=== PATIENT | male | born 1990 ===

== ENCOUNTER 2018-01-07 17:41 | Observation (INO) | payer BC ==
[~2018-01-07 17:41] MED LIST: Bupivacaine HCl 0.25% PF (30 ml) Inj IJ ONE; Lidocaine 2% MPF (5 ml) Inj INJ ONE; Sodium Chloride 0.9% 1,000 ML IV ONE
[2018-01-07 18:08] VITALS: O2SAT 100
--- NOTE | 2018-01-07 18:41 | ED PDOC ---
HPI: Male Pain Time Seen by Provider: 01/07/18 18:11 Chief Complaint (Nursing): Male Genitourinary Chief Complaint (Provider): Male Genitourinary Onset/Duration Of Symptoms: Hrs (x6) Additional Complaint(s): Austin Monson is a 27 y/o male with no significant past medical history who presents to the ED complaining of testicular pain associated with swelling, onset earlier today at 12:00. Patient reports that he had a similar episode several months when he was diagnosed with a cyst after outpatient ultrasound; he states that this feels worse. He states pain radiates to back as well as lower abdomen. He denies any urinary symptoms, diarrhea, constipation, fever, chills, or trauma. PMD: [facility]) Past Medical History Reviewed: Historical Data, Nursing Documentation, Vital Signs Vital Signs: Last Vital Signs Temp 98 F 01/07/18 18:07 Pulse 77 01/07/18 18:07 Resp 20 01/07/18 18:07 BP 128/78 01/07/18 18:07 Pulse Ox 100 01/07/18 18:07 - Medical History PMH: No Chronic Diseases - Surgical History Surgical History: No Surg Hx Other surgeries: Bunion - Family History Family History: States: No Known Family Hx - Social History Current smoker - smoking cessation education provided: No - Home Medications Home Medications: Ambulatory Orders Medication Instructions Recorded No Known Home Med 01/08/18 - Allergies Allergies/Adverse Reactions: Allergies Allergy/AdvReac Type Severity Reaction Status Date / Time No Known Allergies Allergy Verified 01/07/18 18:09 Review of Systems ROS Statement: Except As Marked, All Systems Reviewed And Found Negative (As per HPI otherwise negative) Constitutional: Negative for: Fever, Chills, Other (trauma) Gastrointestinal: Positive for: Abdominal Pain (lower). Negative for: Diarrhea , Constipation Genitourinary Male: Positive for: Scrotal Pain (testicular pain and swelling). Negative for: Dysuria, Frequency, Incontinence Musculoskeletal: Positive for: Back Pain Physical Exam - Reviewed Nursing Documentation Reviewed: Yes Vital Signs Reviewed: Yes - Physical Exam Appears: Positive for: Uncomfortable, In Acute Distress Head Exam: Positive for: ATRAUMATIC, NORMOCEPHALIC Skin: Positive for: Warm, Dry Eye Exam: Positive for: EOMI, PERRL Neck: Positive for: Painless ROM, Trachea Midline Respiratory: Negative for: Accessory Muscle Use, Respiratory Distress Gastrointestinal/Abdominal: Positive for: Soft. Negative for: Distended, Guarding, Rebound, Hernia Male Genital Exam: Positive for: no hernia, testicular tenderness (R) (swelling with tenderness to palpation). Negative for: erythema, lesions, other ( testicular lymphadenopathy) Back: Positive for: Normal Inspection Extremity: Positive for: Normal ROM. Negative for: Deformity Lymphatic: Negative for: Inguinal Node Tenderness Neurologic/Psych: Positive for: Alert. Negative for: Motor/Sensory Deficits - Laboratory Results Result Diagrams: 01/07/18 19:42 01/07/18 19:42 - ECG O2 Sat by Pulse Oximetry: 100 (RA) Pulse Ox Interpretation: Normal Medical Decision Making Medical Decision Making: Time: 18:17 Initial Impression: Testicular pain Differential diagnosis including but not limited to testicular torsion, epididymitis, hyrdocele varicocele Initial Plan: --ED urine dipstick --Chlamydia/GC RNA, TMA --Morphine 4 mg IVP --US - Tetes duplex complete Time: 19:15 --Discussed with Dr. Olivas (Urology) patient has testicular torsion, needs OR stat --Discussed with patient findings and plan of care. Time: 19:23 Addendum created by Sergio Barroso MD on 01/07/2018 7:43 PM Eastern Time ([place] & [place]) Addendum to correct typographical error: Right testicle: No color Doppler flow seen in the right testicle, compatible with torsion. No mass. Addendum created by Sergio Barroso MD on 01/07/2018 7:32 PM Eastern Time ([place] & [place]) THIS REPORT CONTAINS FINDINGS THAT MAY BE CRITICAL TO PATIENT CARE. The findings were verbally communicated via telephone conference with Chanelle Smith at 7: 32 PM EDT on 01/07/2018. The findings were acknowledged and understood. Initial Report created on 01/07/2018 7:29 PM Eastern Time ([place] & [place]) EXAM: US Scrotum EXAM DATE/TIME: 01/07/2018 7:16 PM CLINICAL HISTORY: 27 years old, male; Pain; Scrotum pain; Additional info: Right testicular swelling R/O torsion TECHNIQUE: Real-time ultrasound of the scrotum with color Doppler and image documentation. COMPARISON: No relevant prior studies available. FINDINGS: Right testicle: No color Doppler flow seen in the right ovary, compatible with torsion. No mass. Left testicle: Unremarkable. No mass. No torsion. Epididymides: Unremarkable. Scrotum: Small right hydrocele. IMPRESSION: Right testicular torsion. Dictated and Authenticated by: Sergio Barroso MD 01/07/2018 7:29 PM Eastern Time ([place] & [place]) Scribe Attestation: Documented by Sang Tyler, acting as a scribe for Chanelle Smith MD. Provider Scribe Attestation: All medical record entries made by the Scribe were at my direction and personally dictated by me. I have reviewed the chart and agree that the record accurately reflects my personal performance of the history, physical exam, medical decision making, and the department course for this patient. I have also personally directed, reviewed, and agree with the discharge instructions and disposition. Disposition - Clinical Impression Clinical Impression: Testicular torsion Counseled Patient/Family Regarding: Studies Performed, Diagnosis - Disposition Disposition Time: 19:50 Condition: FAIR - Pt Status Changed To: Hospital Disposition Of: Inpatient - Admit Certification Admit to Inpatient:: After my assessment, the patient will require hospitalization for at least two midnights. This is because of the severity of symptoms shown, intensity of services needed, and/or the medical risk in this patient being treated as an outpatient. - POA Present On Arrival: None
[2018-01-07] MEDS ORDERED: Sodium Chloride 0.9% 1,000 ML IV STA (19:17)
[2018-01-07] MEDS ORDERED: Midazolam 2 MG/2 ML VIAL ONE (19:45)
[2018-01-07] MEDS ORDERED: Propofol 10 mg/ml Inj (20 ML) ONE (19:45)
[2018-01-07 19:46] LABS: BASO # 0.1 K/uL (0.0-0.2); BASO % 0.5 % (0.0-2.0); EOS % 0.2 % (0.0-4.0); HEMOGLOBIN 14.9 g/dL (12.0-18.0); LYMPH # 1.2 K/uL (1.0-4.3); LYMPH % 10.7 % (20.0-40.0); MEAN CELL VOLUME 89.1 fl (80.0-94.0); MEAN CORPUSCULAR HGB CONC 34.9 g/dL (33.0-37.0); MEAN PLATELET VOLUME 8.6 fl (7.2-11.7); MONO # 0.5 K/uL (0.0-0.8); MONO % 3.9 % (0.0-10.0); NEUT # 9.8 K/uL (1.8-7.0); NEUT % 84.7 % (50.0-75.0); RBC 4.81 Mil/uL (4.40-5.90); RED CELL DISTRIBUTION WIDTH 12.7 % (11.5-14.5); WHITE BLOOD COUNT 11.6 K/uL (4.8-10.8)
[2018-01-07] MEDS ORDERED: ceFAZolin IV 1 gm in Dextrose 0 GM/0 ML BAG IVPB ONE (19:50)
[2018-01-07] MEDS ORDERED: Lidocaine 2% MPF (5 ml) Inj ONE (19:50)
[2018-01-07] MEDS ORDERED: Bupivacaine HCl 0.25% PF (30 ml) Inj ONE (19:50)
[2018-01-07] MEDS ORDERED: cefTRIAXone (Rocephin) 1 gm Inj ONE (19:52)
[2018-01-07 19:57] LABS: ALB/GLOB RATIO 1.5 (1.0-2.1); ALBUMIN 4.7 g/dL (3.5-5.0); ALT/SGPT 37 U/L (21-72); AST/SGOT 22 U/L (17-59); BLOOD UREA NITROGEN 15 mg/dl (9-20); GFR AFRICAN-AMERICAN > 60; GFR NON-AFRICAN AMERICAN > 60
[2018-01-07 20:17] LABS: INR 1.1 (0.9-1.2); PARTIAL THROMBOPLASTIN TIME 33.4 Seconds (25.6-37.1); PROTHROMBIN TIME 12.3 Seconds (9.8-13.1)
[2018-01-07] MEDS ORDERED: Bupivacaine HCl 0.25% PF (30 ml) Inj IJ ONE (20:31)
[2018-01-07] MEDS ORDERED: Lidocaine 2% MPF (5 ml) Inj INJ ONE (20:31)
[2018-01-07] MEDS ORDERED: Bacitracin OINT 15GM TOP ONE (21:30)
[2018-01-07] MEDS ORDERED: Bacitracin Ointment 30 GM TUBE ONE (21:43)
[2018-01-07] MEDS ORDERED: Oxycodone/Acetaminophen 5/325 mg Tab PO PRN (22:05)
[2018-01-07] MEDS ORDERED: HYDROmorphone 0.5 mg/0.5 ml ISec IVP PRN (22:12)
[2018-01-07] MEDS ORDERED: Sodium Chloride 0.9% 1,000 ML IV SCH ×2 (22:15)
--- NOTE | 2018-01-08 05:56 | CON ---
DATE: 01/07/2018 COMPREHENSIVE EMERGENCY ROOM PREOPERATIVE CONSULTATION TIME OF CONSULTATION: Roughly 8:00 p.m. REASON FOR CONSULTATION: Right testicular torsion. HISTORY OF PRESENT ILLNESS: The patient is a 27-year-old male, born in the [place], who presents to [facility] ER with a 11 to 12 hour history of worsening right testicular pain. The patient has had at least two prior episodes similar to this episode, but not as severe in the past, which did not require any treatment. An emergency Doppler scrotal ultrasound showed no flow to the right testicle and normal flow to the left testicle. No testicular masses. The patient's only prior surgical history is removal of a bunion from the left foot several years ago. PAST MEDICAL HISTORY: No medical history. SOCIAL HISTORY: The patient is a nonsmoker and just a social drinker. ALLERGIES: NO KNOWN ALLERGIES TO ANY MEDICATION. FAMILY HISTORY: Noncontributory. PHYSICAL EXAMINATION: GENERAL: Today, the patient is a well-developed, well-nourished male, alert and oriented. HEENT: Grossly within normal limits. NECK: Supple. Thyroid, not palpable. CHEST: Chest expands symmetrically. Lungs are clear to auscultation. HEART: Regular rhythm. ABDOMEN: Soft, nondistended, and nontender. No CVA tenderness. No suprapubic tenderness. GENITALIA: The right testicle is slightly swollen and tender without any induration. Left testicle is normal. Both testes are down bilaterally. Currently, the right testicle appears to be possibly in the transverse lie position. LABORATORY EVALUATION: Still pending on this patient. PLAN: Plan for this patient is to schedule the patient for the OR for right scrotal exploration with right testicular detorsion and bilateral orchiopexy. Adalid Olivas MD
--- NOTE | 2018-01-08 06:38 | OP ---
PROCEDURE DATE: 01/07/2018 TIME: 9:45 p.m. PREOPERATIVE DIAGNOSIS: Right testicular torsion. POSTOPERATIVE DIAGNOSIS: Detorsion. PROCEDURE: Right scrotal exploration, right and left orchiopexy. DESCRIPTION OF PROCEDURE: The patient was placed on the operative table in the supine position, prepped and draped in the usual sterile fashion with Betadine solution. Under adequate laryngeal mask anesthesia with Dr. Cotto, approximately 4 mL of 2% lidocaine and 0.5% marcaine in a 50/50 mixture were injected subcutaneously over the mid transverse right scrotal sac. An incision was made transversely in the mid portion of the right scrotal sac, deepened down through the subcutaneous tissue, eventually exposing the tunica vaginalis, which was then opened and the right testicle was brought out through the scrotal wound. This testicle appeared to be completely normal. It was pink and did not appear to be torted at this time and may have been detorted from the emergency room to the operative room or under laryngeal mask anesthesia. Intraop Doppler showed good blood flow to the right testicle, which was pink and also there was bleeding noted during the orchiopexy portion of the procedure. Bilateral 2-0 Vicryl sutures were used to suture the testicle to the scrotal wall in the middle of the testicle. At the end of this portion of the procedure, the testicle was placed back in its normal anatomical position, the epididymis was normal inferiorly and superiorly, and the appendix testis was removed during the procedure. This was sent as a separate specimen to pathology. The subcutaneous tissue was then closed using 2-0 Vicryl continuous suture followed by closure of the skin using interrupted 3-0 chromic sutures. A transverse skin incision was then made in the mid portion of the left scrotum, and this was deepened down to the subcutaneous tissue exposing the left testicle and its tunica vaginalis sac. The mid portion of the left testis was then sutured to the scrotal wall using interrupted 2-0 Vicryl sutures, and the skin was then closed with 3-0 chromic interrupted sutures. The Bovie cautery was used sparingly throughout the procedure, 30 north, for hemostasis. Bacitracin ointment was applied to both scrotal wounds followed by application of a sterile fluff gauze dressing to the wound which was held in place using a large scrotal support. The patient tolerated the procedure well with approximately 20 mL of blood loss and was brought to recovery area in satisfactory condition. The plan for this patient will be to keep the patient overnight for observation, and the patient could be discharged home on 01/08/2018. Adalid Olivas MD MTDNoman
--- NOTE | 2018-01-08 09:44 | US ---
HISTORY: RIGHT testicular swelling r/o torsion TECHNIQUE: Realtime sonography through the scrotum with color and doppler flow. COMPARISON: None Available. FINDINGS: RIGHT TESTICLE: Measures 4.4 x 2.9 x 2.6 cm. No Doppler flow. RIGHT EPIDIDYMIS: Epididymal head measures 1.2 x 0.7 x 1.4 cm. Heterogeneous. LEFT TESTICLE: Measures 3.5 x 2.5 x 1.7 cm. Normal echotexture and flow. LEFT EPIDIDYMIS: Epididymal head measures 1.1 x 0.7 x 1.2 cm. Grossly unremarkable appearance with normal flow. HYDROCELE: Small right hydrocele. VARICOCELE: None. OTHER FINDINGS: None. IMPRESSION: Right testicular torsion. Findings were conveyed to Dr. Smith by the cath lab radiological technologist at 7:15 p.m. on 01/08/2018.
[2018-01-08 14:42] VITALS: BP 116/73; PULSE 80; RESP 20; TEMP 98.1
--- NOTE | 2018-01-09 05:35 | DS ---
HISTORY OF PRESENT ILLNESS: The patient is status post right scrotal exploration for testicular torsion and bilateral orchiopexy. The patient remains afebrile during this hospitalization. The patient is completely pain free and did not require any pain medication last evening. The patient can be discharged home on Ceftin 500 mg b.i.d. for five days and Extra Strength Tylenol 1 gm every 6 hours on a p.r.n. basis. PHYSICAL EXAMINATION: VITAL SIGNS: His vital signs today on 01/08/2018 shows temperature of 97.7, pulse 68, blood pressure 112/69, respiratory rate 19, and O2 sat on room air is 100%. DIAGNOSTIC IMPRESSION: For this patient was right testicular torsion on scrotal Doppler ultrasound. The patient most likely detorsed during the procedure. PLAN: Plan for this patient, see the patient office followup in one week. The patient is advised not to do any heavy lifting or moving furniture, which he usually does on his job for at least four weeks. Adalid Olivas MD MTDD
== END 2018-01-08 15:25 | disposition home or self-care (01) ==
LOC: H.ER 17:41 → H.ERHOLD 19:21 → INTOOBSV 19:21 → H.MEDSURG1 23:00
PROVIDERS: ADMIT Urology; ATTEND Urology
DX: N44.00 Torsion of testis, unspecified (principal)
CPT/HCPCS: 54600; 54640; 80053; 85025; 85610; 85730; 87491; 87591; 88304; 93975; 99283; G0378; J1170; J2175; J2250; J2704; J3010; J7030